=== PATIENT | male | born 1950 | race Hispanic/Latino ===

== ENCOUNTER 2017-01-11 12:36 | Inpatient (IN) | payer MEDICARE ==
--- NOTE | 2017-01-11 17:08 | Admit Criteria Form ---
Admission Criteria Documentation: DEEP VENOUS THROMBOSIS OF LOWER EXTREMITIES Clinical Indications for Admission to Inpatient Care ( Place 'X' for any and all applicable criteria): Admission is indicated for ANY ONE of the following (1)(2)(3)(4): [ ]I. Documented extensive thrombosis (e.g., clot in vena cava or above iliofemoral bifurcation) [ ]II. Limb-threatening thrombosis (e.g., phlegmasia cerulea dolens) [ ]III. Active bleeding [ ]IV. Recent surgery (e.g., within 6 weeks) [ ]V. Active peptic ulcer disease [ ]. Thrombosis while on anticoagulation [ ]VII. [X ]VIII. Appropriate monitoring and therapy cannot be provided in home or outpatient setting [ ]IX. Thrombolysis (e.g., catheter-directed) or pharmaco mechanical thrombectomy needed (3) [ ]X. Vena cava filter placement planned (3) [ ]XI. Severely diminished cardiopulmonary reserve (e.g., pulmonary hypertension) [ ]XII. Severe renal failure (e.g., GFR less than 30 mL/min/1.73m2 (0.5 mL/sec /1.73m2)) [ ]XIII. Known clotting abnormality or deficiency (antithrombin III, protein C , or protein S) [ ]XIV. History of heparin-induced thrombocytopenia [ ]XV . Personal or family history of bleeding tendency or familial bleeding disorder that requires inpatient admission rather than observation care (Also use Deep Venous Thrombosis of Lower Extremities: Observation Care as appropriate) because of ANY ONE of the following: [ ]a) Significant allergic, autoimmune (thrombocytopenia), or coagulopathic reaction occurs in response to anticoagulation [ ]b) Other significant finding or clinical condition judged not to be within the scope of observation care Extended stay beyond goal length of stay may be needed for(1)(19): [ ]a) Hemorrhage or recent surgery(3) [ ]b) Inadequate oral anticoagulation [ ]c) Recurrent thromboembolism(3) [ ]d) Heparin-induced thrombocytopenia(14) The original [facility] content created by [facility] has been revised. The portions of the content which have been revised are identified through the use of italic text or in bold, and [facility] has neither reviewed nor approved the modified material. All other unmodified content is copyright [facility]. Please see references footnoted in the original [facility] edition 2016 Admission Criteria Met: Yes
[2017-01-11] MEDS ORDERED: LOVENOX SUB-Q SCH ×2 (18:00→22:00)
[2017-01-11 18:40] LABS: INR 1.16 (0.87-1.13)
[2017-01-11] MEDS: NOVOLOG SUB-Q SCH ×2 (19:41→23:00)
[2017-01-11 21:10] LABS: BUN/Creatinine Ratio 24.61; Calcium 9.2 mg/dL (8.4-10.2); Potassium 4.3 mmol/L (3.6-5.0)
[2017-01-11] MEDS: LOVENOX SUB-Q SCH ×2 (21:15)
--- NOTE | 2017-01-11 21:17 | Event Note ---
Date: 01/11/17 See H/p in reports RLE DVT IDDMHTN Morbid Obesity HLD Arrhythmias BPH
[2017-01-11] MEDS ORDERED: ALFUZOSIN HCL 10 MG PO SCH (21:30)
[2017-01-11] MEDS ORDERED: INSULIN LISPRO PROTAMINE SUB-Q SCH (21:30)
[2017-01-11] MEDS ORDERED: [UNRECOGNIZED DRUG - OTHER] SUB-Q SCH (21:30)
[2017-01-11] MEDS ORDERED: NON-FORMULARY (Canagliflozin [Invokana] 100 MG) PO SCH (21:30)
[2017-01-11 21:47] LABS: Basophils % (Auto) 0.8 % (0.0-1.8); Eosinophils % (Auto) 2.4 % (0.0-4.3); Hemoglobin 12.4 gm/dl (11.8-15.2); Mean Corpuscular HGB Conc 33 % (32-34); Mean Corpuscular Hemoglobin 31 pg (28-32); Mean Corpuscular Volume 94 fl (84-94); Platelet Count 229 K/mm3 (140-440); Red Blood Count 3.93 M/mm3 (3.65-5.03); Red Cell Distribution Width 13.4 % (13.2-15.2); White Blood Count 7.8 K/mm3 (4.5-11.0)
[2017-01-11 21:58] LABS: Albumin 4.3 g/dL (3.9-5); Albumin/Globulin Ratio 1.6 %; BUN/Creatinine Ratio 24.61; Bilirubin,Total 0.2 mg/dL (0.1-1.2); Calcium 9.4 mg/dL (8.4-10.2); Potassium 4.3 mmol/L (3.6-5.0)
[2017-01-11] MEDS: TAMBOCOR PO SCH (23:00)
[2017-01-11] MEDS: COREG PO SCH (23:00)
[2017-01-11] MEDS: PERCOCET 5/325 PO PRN (23:28)
[2017-01-12] MEDS: PERCOCET 5/325 PO PRN (05:15)
[2017-01-12 05:54] LABS: INR 1.27 (0.87-1.13)
[2017-01-12] MEDS: NOVOLOG SUB-Q SCH ×4 (08:35→22:27)
[2017-01-12] MEDS: ACTOS PO SCH (08:35)
[2017-01-12 09:55] LABS: BUN/Creatinine Ratio 21.53; Calcium 8.9 mg/dL (8.4-10.2); Chloride 98.1 mmol/L (98-107); Potassium 4.5 mmol/L (3.6-5.0)
--- NOTE | 2017-01-12 10:05 | Progress Note ---
Assessment and Plan Assessment and plan: Acute DVT right lower extremity. Patient admitted, started on Lovenox and Coumadin. Insurance Agency Sales Manager on-call consulted. daily INR Diabetes mellitus type II. Check fingerstick before every meal and at bedtime. Continue Novolin 70/30 twice daily. Cont Actos. Hyperlpidemia. On Lipitor. Arrhythmias. Cont Amiodarone. Units anemia. Sodium 135 today. Start normal saline IV fluid BPH. Morbid obesity. I discussed weight loss with him. FULL CODE STATUS History Interval history: Less pain right lower extremity, No chest pain No shortness of breath Hospitalist Physical - Physical exam Narrative exam: Gen. appearance: not in acute distress HEENT: Normocephalic atraumatic Neck: supple no JVD Lungs: Clear to auscultation bilaterally, no crackles or wheezes Heart: S1-S2 regular, no murmurs, rubs or gallop Abdomen:soft, non-tender, non-distended, normal bowel sounds Extremity: right lower ext swollen, no clubbing or cyanosis Neuro : Awake alert oriented 3, no focal neurologic signs Psychiatry: normal mood Skin: no rashes - Constitutional Vitals: Temp Pulse Resp BP Pulse Ox 98.3 F 68 18 136/64 97 01/12/17 07:30 01/12/17 07:30 01/12/17 07:30 01/12/17 07:30 01/12/17 07:30 Results - Labs CBC & Chem 7: 01/11/17 20:38 01/12/17 09:10 Labs: Laboratory Last Values WBC 7.8 K/mm3 (4.5-11.0) 01/11/17 20:38 RBC 3.93 M/mm3 (3.65-5.03) 01/11/17 20:38 Hgb 12.4 gm/dl (11.8-15.2) 01/11/17 20:38 Hct 37.0 % (35.5-45.6) 01/11/17 20:38 MCV 94 fl (84-94) 01/11/17 20:38 MCH 31 pg (28-32) 01/11/17 20:38 MCHC 33 % (32-34) 01/11/17 20:38 RDW 13.4 % (13.2-15.2) 01/11/17 20:38 Plt Count 229 K/mm3 (140-440) 01/11/17 20:38 Lymph % (Auto) 21.7 % (13.4-35.0) 01/11/17 20:38 [place] % (Auto) 8.5 % (0.0-7.3) H 01/11/17 20:38 Eos % (Auto) 2.4 % (0.0-4.3) 01/11/17 20:38 Baso % (Auto) 0.8 % (0.0-1.8) 01/11/17 20:38 Lymph # 1.7 K/mm3 (1.2-5.4) 01/11/17 20:38 [place] # 0.7 K/mm3 (0.0-0.8) 01/11/17 20:38 Eos # 0.2 K/mm3 (0.0-0.4) 01/11/17 20:38 Baso # 0.1 K/mm3 (0.0-0.1) 01/11/17 20:38 Seg Neutrophils % 66.6 % (40.0-70.0) 01/11/17 20:38 Seg Neutrophils # 5.2 K/mm3 (1.8-7.7) 01/11/17 20:38 PT 15.8 Sec. (12.2-14.9) H 01/12/17 04:44 INR 1.27 (0.87-1.13) H 01/12/17 04:44 Sodium 135 mmol/L (137-145) L 01/12/17 09:10 Potassium 4.5 mmol/L (3.6-5.0) 01/12/17 09:10 Chloride 98.1 mmol/L (98-107) 01/12/17 09:10 Carbon Dioxide 23 mmol/L (22-30) 01/12/17 09:10 Anion Gap 18 mmol/L 01/12/17 09:10 BUN 28 mg/dL (9-20) H 01/12/17 09:10 Creatinine 1.3 mg/dL (0.8-1.5) 01/12/17 09:10 Estimated GFR 55 ml/min 01/12/17 09:10 BUN/Creatinine Ratio 21.53 % 01/12/17 09:10 Glucose 323 mg/dL (75-100) H 01/12/17 09:10 POC Glucose 217 (70-105) H 01/12/17 06:24 Hemoglobin A1c 9.8 % (4-6) H 01/12/17 04:44 Calcium 8.9 mg/dL (8.4-10.2) 01/12/17 09:10 Total Bilirubin 0.2 mg/dL (0.1-1.2) 01/11/17 20:38 AST 12 units/L (5-40) 01/11/17 20:38 ALT 11 units/L (7-56) 01/11/17 20:38 Alkaline Phosphatase 105 units/L (35-129) 01/11/17 20:38 Total Protein 7.0 g/dL (6.3-8.2) 01/11/17 20:38 Albumin 4.3 g/dL (3.9-5) 01/11/17 20:38 Albumin/Globulin Ratio 1.6 % 01/11/17 20:38
[2017-01-12] MEDS: COREG PO SCH ×2 (10:36→22:01)
[2017-01-12] MEDS: EFFEXOR PO SCH (10:36)
[2017-01-12] MEDS: HCTZ PO SCH (10:36)
[2017-01-12] MEDS: TAMBOCOR PO SCH ×2 (10:36→22:00)
[2017-01-12] MEDS: LOVENOX SUB-Q SCH ×4 (10:37→22:00)
[2017-01-12] MEDS ORDERED: COUMADIN PO SCH (17:00)
[2017-01-12] MEDS ORDERED: INSULIN LISPRO PROT SUB-Q SCH (18:00)
[2017-01-12] MEDS ORDERED: LISPRO SUB-Q SCH (18:00)
[2017-01-12] MEDS: NACL 0.9% 1000 ML 1,000 ML IV SCH (18:05)
--- NOTE | 2017-01-12 22:48 | History and Physical Report ---
CHIEF COMPLAINT: Right lower extremity swelling. HISTORY OF PRESENT ILLNESS: A 66-year-old male with history of insulin-dependent diabetes, BPH, hypertension, and hyperlipidemia who is being directly admitted to the floor from the doctors office for right lower extremity swelling. The patient had workup as outpatient and was positive for right lower extremity deep vein thrombosis. The patient does not have any shortness of breath. No chest pain. Just swelling of the right lower cuff and pain. The right lower extremity venous duplex scan was showing acute DVT in the right saphenous vein, superficial femoral vein, popliteal vein, and peroneal veins. PAST MEDICAL HISTORY: Significant for insulin-dependent diabetes, BPH, hypertension, and hyperlipidemia. CURRENT MEDICATIONS: Uroxatral 10 mg p.o. daily, Tambocor 100 mg twice a day, Humalog 75/25, 20 units subcutaneous q.p.m., insulin 75/25 30 units 8 a.m. and 20 units in the evening, hydrochlorothiazide 12.5 p.o. daily, Effexor 75 p.o. daily, Actos 30 mg p.o. daily, Coreg 12.5 p.o. b.i.d., Lipitor 40 mg p.o. daily, Invokana 100 mg p.o. daily. PAST SURGICAL HISTORY: Unknown. FAMILY HISTORY: Significant for hypertension. SOCIAL HISTORY: Does not smoke. No alcohol, no recreational drugs. REVIEW OF SYSTEMS: Significant for right lower extremity swelling. CONSTITUTIONAL: No weight loss, weight gain. HEENT: No sore throat. No postnasal drip. CARDIOVASCULAR AND RESPIRATORY: No shortness of breath, no chest pain, no palpitations. GASTROINTESTINAL: No nausea, no vomiting. GENITOURINARY: No dysuria, no flank pain. CENTRAL NERVOUS SYSTEM: No syncope, no seizures. A 14-point review of system was done and essentially negative. PHYSICAL EXAMINATION: GENERAL: Elderly male, morbidly obese. VITAL SIGNS: Blood pressure 154/71, repeat was 112/58, temperature 98.3. HEENT: Unremarkable. Pupils equal and reactive. NECK: Supple. No lymphadenopathy, no thyromegaly. LUNGS: Clear to auscultation and percussion. Good air entry. CARDIOVASCULAR: S1, S2 heard. No gallop, no murmur, no rub. Apical impulse in left fifth intercostal space and midclavicular line. ABDOMEN: Soft and benign. No hepatosplenomegaly. No guarding, no rigidity. Hernial orifices are normal. EXTREMITIES: Good pedal pulses. Right lower extremity swelling. CENTRAL NERVOUS SYSTEM: Alert and oriented x 4, nonfocal exam. DIAGNOSTIC STUDIES: Duplex scan was positive for acute DVT in the right lower extremity, especially in the right superficial femoral vein, popliteal vein, and peroneal veins. LABORATORY DATA: Significant for BUN and creatinine of 32 and 1.3, sodium of 130, glucose of 262. A1c of 9.8. ASSESSMENT AND PLAN: 1. Right lower extremity deep venous thrombosis. The patient started on 140 mg of Lovenox subcutaneous q.12h., transition to Coumadin. 2. Benign prostatic hypertrophy. Continue Uroxatral 10 mg p.o. daily. 3. Arrhythmias. Continue flecainide 100 mg b.i.d. 4. Insulin-dependent diabetes, uncontrolled. We will increase the dosage to 40 units in the morning and 30 units in the evening. 5. Hypertension. Continue hydrochlorothiazide 12.5 daily and Coreg 12.5 q.12h. 6. Deep venous thrombosis prophylaxis. The patient already on Lovenox 140 mg subcutaneous q. 12. JOB# [id number] VSM/NTS
--- NOTE | 2017-01-12 23:57 | Consultation ---
History of Present Illness - Reason for Consult Consult date: 01/12/17 DVT, right leg. Requesting physician: MIO MCADAMS - History of Present Illness Thank you for this consult, patient seen/examined, record reviewed, case d/w patient. Kindly asked to see this patient who presented with right leg pain, w/ up revealed right leg DVT. hence this consult. Patient has since been placed on anticoags. As per his hx, he had left leg DVt 10yrs ago treated with coumadin for 1yr. The etiology was never found. It was perhaps blamed on sedentary life styles, which he continues to live. He also reported remote hx of cardiac arrythemia.He had lithrotropy procedure2 months ago. by [facility].He denies any Family hx pertinent. He is non smoker..Please see full w/up. Medications and Allergies Allergies Allergy/AdvReac Type Severity Reaction Status Date / Time Penicillins Allergy Rash Unverified 01/11/17 12:36 Home Medications Medication Instructions Recorded Confirmed Last Taken Type Alfuzosin HCl [Uroxatral] 10 mg PO DAILY 01/11/17 01/11/17 1 Day Ago History AtorvaSTATin [Lipitor] 40 mg PO DAILY 01/11/17 01/11/17 1 Day Ago History Canagliflozin [Invokana] 100 mg PO DAILY 01/11/17 01/11/17 1 Day Ago History Carvedilol [Coreg] 12.5 mg PO BID 01/11/17 01/11/17 1 Day Ago History Flecainide [Tambocor] 100 mg PO BID 01/11/17 01/11/17 1 Day Ago History Hydrochlorothiazide [HCTZ] 12.5 mg PO DAILY 01/11/17 01/11/17 1 Day Ago History Insulin Lispro Prot/Lispro 20 units SUB-Q QPM 01/11/17 01/11/17 1 Day Ago History [HumaLOG Mix 75/25 Vial] Insulin Lispro Prot/Lispro 30 units SUB-Q Q8AM 01/11/17 01/11/17 1 Day Ago History [HumaLOG Mix 75/25 Vial] Pioglitazone [Actos] 30 mg PO DAILY 01/11/17 01/11/17 1 Day Ago History Venlafaxine [Effexor] 75 mg PO DAILY 01/11/17 01/11/17 1 Day Ago History Active Meds: Active Medications Atorvastatin Calcium (Lipitor) 40 mg PO DAILY [facility] Last Admin: 01/12/17 10:36 Dose: 40 mg Carvedilol (Coreg) 12.5 mg PO BID [facility] Last Admin: 01/12/17 22:01 Dose: 12.5 mg Enoxaparin Sodium (Lovenox) 80 mg SUB-Q Q12HR [facility] Last Admin: 01/12/17 22:00 Dose: 80 mg Enoxaparin Sodium (Lovenox) 60 mg SUB-Q Q12HR [facility] Last Admin: 01/12/17 22:00 Dose: 60 mg Flecainide Acetate (Tambocor) 100 mg PO BID [facility] Last Admin: 01/12/17 22:00 Dose: 100 mg Hydrochlorothiazide (Hctz) 12.5 mg PO DAILY [facility] Last Admin: 01/12/17 10:36 Dose: 12.5 mg Sodium Chloride (Nacl 0.9% 1000 Ml) 1,000 mls @ 100 mls/hr IV DIRECT [facility] Last Admin: 01/12/17 18:05 Dose: 100 mls/hr Insulin Aspart (Novolog) 0 units SUB-Q ACHS [facility] PRN Reason: Protocol Last Admin: 01/12/17 22:27 Dose: Not Given Insulin Human Isoph/Insulin Regular (Novolin 70/30) 30 unit SUB-Q QDDIAB [facility] Last Admin: 01/12/17 08:35 Dose: 30 unit Insulin Human Isoph/Insulin Regular (Novolin 70/30) 40 unit SUB-Q QPMDIAB [facility] Miscellaneous Medication (Alfuzosin Hcl [Uroxatral]) 10 mg PO DAILY [facility] Miscellaneous Medication (Canagliflozin [Invokana]) 100 mg PO DAILY [facility] Oxycodone/Acetaminophen (Percocet 5/325) 1 tab PO Q6H PRN PRN Reason: Pain, Moderate (4-6) Last Admin: 01/12/17 05:15 Dose: 1 tab Pioglitazone HCl (Actos) 30 mg PO QDDIAB [facility] Last Admin: 01/12/17 08:35 Dose: 30 mg Venlafaxine HCl (Effexor) 75 mg PO DAILY [facility] Last Admin: 01/12/17 10:36 Dose: 75 mg Warfarin Sodium (Coumadin Pharmacy To Dose) 1 each PO PKCONSULT [facility] PRN Reason: Protocol Warfarin Sodium (Coumadin) 10 mg PO DAILY@1700 [facility] Last Admin: 01/12/17 18:03 Dose: 10 mg Review of Systems Musculoskeletal: shooting leg pain Exam - Constitutional Vitals: Temp Pulse Resp BP Pulse Ox 98.7 F 70 18 163/74 97 01/12/17 22:38 01/12/17 22:38 01/12/17 22:38 01/12/17 22:38 01/12/17 22:38 General appearance: Present: mild distress, well-nourished - EENT Eyes: Present: PERRL ENT: hearing intact, clear oral mucosa - Neck Neck: Present: supple, normal ROM - Respiratory Respiratory effort: normal Respiratory: bilateral: CTA - Cardiovascular Heart Sounds: Present: S1 & S2. Absent: rub, click - Extremities Extremities: pulses symmetrical, No edema Peripheral Pulses: within normal limits - Abdominal General gastrointestinal: Present: soft, non-tender, non-distended, normal bowel sounds Male genitourinary: Present: deferred - Rectal Rectal Exam: deferred - Integumentary Integumentary: Present: clear, warm, dry - Musculoskeletal Musculoskeletal: gait normal, strength equal bilaterally - Psychiatric Psychiatric: appropriate mood/affect, intact judgment & insight - Neurologic Neurologic: CNII-XII intact, moves all extremities Results - Labs CBC & Chem 7: 01/11/17 20:38 01/12/17 09:10 Labs: Abnormal lab results 01/12/17 01/12/17 01/12/17 Range/Units 04:44 04:44 06:24 PT 15.8 H (12.2-14.9) Sec. INR 1.27 H (0.87-1.13) Sodium (137-145) mmol/L BUN (9-20) mg/dL Glucose (75-100) mg/dL POC Glucose 217 H (70-105) Hemoglobin A1c 9.8 H (4-6) % 01/12/17 01/12/17 01/12/17 Range/Units 09:10 11:38 17:01 PT (12.2-14.9) Sec. INR (0.87-1.13) Sodium 135 L (137-145) mmol/L BUN 28 H (9-20) mg/dL Glucose 323 H (75-100) mg/dL POC Glucose 192 H 163 H (70-105) Hemoglobin A1c (4-6) % 01/12/17 Range/Units 21:39 PT (12.2-14.9) Sec. INR (0.87-1.13) Sodium (137-145) mmol/L BUN (9-20) mg/dL Glucose (75-100) mg/dL POC Glucose 147 H (70-105) Hemoglobin A1c (4-6) % Assessment and Plan - Patient Problems (1) DVT (deep venous thrombosis) Current Visit: Yes Status: Acute Qualifiers: DVT location: D Affected thrombotic vein of extremity: A Laterality: L Chronicity: C Plan to address problem: See full w/up, continue with anti coags.
[2017-01-13 05:10] LABS: Hematocrit 35.3 % (35.5-45.6); Hemoglobin 11.9 gm/dl (11.8-15.2); Mean Corpuscular HGB Conc 34 % (32-34); Mean Corpuscular Hemoglobin 32 pg (28-32); Mean Corpuscular Volume 94 fl (84-94); Platelet Count 246 K/mm3 (140-440); Red Blood Count 3.74 M/mm3 (3.65-5.03); Red Cell Distribution Width 13.5 % (13.2-15.2); White Blood Count 8.2 K/mm3 (4.5-11.0)
[2017-01-13 05:18] LABS: INR 1.27 (0.87-1.13)
[2017-01-13 05:28] LABS: BUN/Creatinine Ratio 16.42; Calcium 8.9 mg/dL (8.4-10.2); Chloride 101.8 mmol/L (98-107); Potassium 4.4 mmol/L (3.6-5.0)
[2017-01-13] MEDS: NACL 0.9% 1000 ML 1,000 ML IV SCH (05:30)
[2017-01-13] MEDS: NOVOLOG SUB-Q SCH ×2 (08:32→12:30)
[2017-01-13] MEDS: ACTOS PO SCH (08:32)
[2017-01-13] MEDS: LOVENOX SUB-Q SCH ×2 (09:46)
[2017-01-13] MEDS: COREG PO SCH (09:46)
[2017-01-13] MEDS: HCTZ PO SCH (09:47)
[2017-01-13] MEDS: EFFEXOR PO SCH (09:47)
[2017-01-13] MEDS: TAMBOCOR PO SCH (09:47)
[2017-01-13 09:57] VITALS: BP 142/72
--- NOTE | 2017-01-13 10:48 | Discharge Summary ---
Providers - Providers Date of Admission: 01/11/17 15:22 Date of discharge: 01/13/17 Attending physician: MIO MCADAMS 01/12/17 10:01 Consult to Physician [CONS] Routine Consulting Provider: SENTHIL GUILLEN Reason For Exam: DVT right leg Place consult to:: Dr. Guillen Notified:: OFFICE Phone number called:: [phone] Was contact made?: Yes If yes, spoke with:: JENNIFER Time called:: 11:30 Comment:: [facility] NOTIFIED Primary care physician: THOMAS NAVARRO Hospitalization Condition: Good Hospital course: Patient is 66 yo with diabetes, BPH. he was sent in as direct admit because he was found to have DVT right leg after complaining of pain and swelling right leg. He was started on Lovenox and admitted. Public Health Assistant was consulted, and he was evaluated by Dr. Guillen. He ordered hypercoagulability workup. Patient was re-evaluated on 12/1516, less leg pain , so was discharged home on Coumadin and Lovenox bridge, to follow as outpatient. Total time spent on discharge, 33 mins. Disposition: DISCHARGED TO HOME OR SELFCARE - Discharge Diagnoses (1) Right leg DVT Status: Acute Qualifiers: Affected thrombotic vein of extremity: A Chronicity: acute (2) HTN (hypertension) Status: Chronic Qualifiers: Hypertension type: essential hypertension Qualified Code(s): I10 - Essential (primary) hypertension (3) Diabetes mellitus type 2 in obese Status: Chronic (4) Hyperlipidemia Status: Chronic Qualifiers: Hyperlipidemia type: H Core Measure Documentation - Palliative Care Palliative Care/ Comfort Measures: Not Applicable - Core Measures Any of the following diagnoses?: DVT/PE - VTE Discharge Requirements Deep Vein Thrombosis/Pulmonary Embolism Present on Admission: Yes Has pt received <5 days of overlap therapy or INR<2.0: Yes Anticoagulant overlap therapy prescribed at discharge: Yes Exam - Physical Exam Narrative exam: Gen. appearance: not in acute distress HEENT: Normocephalic atraumatic Neck: supple no JVD Lungs: Clear to auscultation bilaterally, no crackles or wheezes Heart: S1-S2 regular, no murmurs, rubs or gallop Abdomen:soft, non-tender, non-distended, normal bowel sounds Extremity: right lower ext swollen, no clubbing or cyanosis Neuro : Awake alert oriented 3, no focal neurologic signs Psychiatry: normal mood Skin: no rashes - Constitutional Vitals: Temp Pulse Resp BP Pulse Ox 97.8 F 72 18 142/72 98 01/13/17 08:00 01/13/17 09:46 01/13/17 08:00 01/13/17 09:46 01/13/17 08:00 - EENT Eyes: Present: exopthalmos Plan Activity: no restrictions Diet: low fat, low cholesterol, low salt Additional Instructions: 1.Follow up with PCP in 3-5 days. 2.Follow up with Dr. Guillen in 1 week. 3.Check INR at office of Dr. Christopher Dave on Wednesday. 4.Lovenox to be discontinued when INR>2 Follow up with: THOMAS NAVARRO MD [Primary Care Provider] - 7 Days Forms: Warfarin Discharge Instruction Prescriptions: Enoxaparin [Lovenox] 120 mg SQ Q12HR #10 syringe HYDROcodone/APAP 5-325 [Tyrone 5/325] 1 each PO Q6HR PRN #10 tablet PRN Reason: Pain Warfarin [Coumadin] 10 mg PO DAILY@1700 #30 tablet
--- NOTE | 2017-01-13 11:33 | Vascular Lab Report ---
Right Lower Extremity Venous Duplex Study: Reason for Exam: Pain and swelling of the right lower extremity. Comments on the Right: Acute deep venous thrombosis is noted in the posterior tibial and peroneal veins extending into and through the popliteal vein, femoral vein up to femoral confluence.. The remaining veins visualized are freely compressible without evidence of internal echogenicity. Spontaneous and phasic flow is present proximally. Comments on the Left: A limited duplex study was done of the proximal veins of the left lower extremity. All veins visualized are freely compressible without evidence of internal echogenicity. Flow is spontaneous and phasic throughout. No evidence of acute or chronic thrombus is seen in any of the vessels visualized. Impression: Acute deep venous thrombosis in the right lower extremity.
[2017-01-13] MEDS ORDERED: INVOKANA PO SCH (12:00)
[2017-01-15 14:17] LABS: Protein S, Free 127 % normal (57-171); Protein S, Total 141 % (70-140)
[2017-01-15 22:44] LABS: PTT-LA 59 sec (<=40)
[2017-01-21 07:47] LABS: Activated Protein C Resistance SEE SCANNED RESULTS; HOMOCYSTEINE SEE SCANNED RESULTS; Interpretation HYPERCOAG PROF SEE SCANNED RESULTS; Protein C Antigen SEE SCANNED RESULTS; Protein S, Free SEE SCANNED RESULTS; Protein S, Total SEE SCANNED RESULTS; dRVVT Screen SEE SCANNED RESULTS
[2017-01-21 07:48] LABS: dRVVT Screen SEE SCANNED RESULTS
== END 2017-01-13 14:30 | disposition home or self-care (01) | DRG 300 ==
LOC: VAS 12:36 → UNDOADMIN 14:47 → 3A 14:47
PROVIDERS: ADMIT Internal Medicine; ATTEND Internal Medicine
DX: I82.4Z1 Acute embolism and thrombosis of unspecified deep veins of right distal lower extremity (principal); Z68.41 Body mass index [BMI] 40.0-44.9, adult; E87.1 Hypo-osmolality and hyponatremia; E66.01 Morbid (severe) obesity due to excess calories; E11.65 Type 2 diabetes mellitus with hyperglycemia; I10 Essential (primary) hypertension; E78.5 Hyperlipidemia, unspecified; N40.0 Benign prostatic hyperplasia without lower urinary tract symptoms; Z88.0 Allergy status to penicillin; Z79.4 Long term (current) use of insulin; Z71.3 Dietary counseling and surveillance
CPT/HCPCS: 36415; 80048; 80053; 82962; 83036; 83516; 83615; 84153; 85025; 85027; 85220; 85301; 85305; 85307; 85610; 85613; 85652; 86147; A9270-GY; J1650; J1815; J7030